=== PATIENT | male | born 1985 | race Caucasian/White ===

== ENCOUNTER → 2016-12-07 | Outpatient (CLI) | payer MEDICAID ==
[~2016-12-07] MED LIST: None per pt
== END | disposition home or self-care (01) ==
LOC: STAR 14:35
PROVIDERS: ATTEND Surgery
DX: Z02.9 Encounter for administrative examinations, unspecified (principal)

== ENCOUNTER 2016-12-15 09:24 | Day surgery (SDC) | payer MEDICAID ==
[~2016-12-15] VITALS: Ht 168.9 cm; Wt 91.0 kg
[2016-12-15 10:07] VITALS: BP 129/86
[2016-12-15] MEDS ORDERED: FENTANYL PF 100 MCG/2ML ONE ×2 (10:40→11:38)
[2016-12-15] MEDS ORDERED: BUPIVACAINE/PF-EPI 0.25% 1:200K ONE (10:41)
[2016-12-15] MEDS ORDERED: ONDANSETRON 2MG/ML, 2ML ONE (10:51)
[2016-12-15] MEDS ORDERED: KETOROLAC 30 MG/1 ML ONE (10:51)
[2016-12-15] MEDS ORDERED: CEFAZOLIN 1,000 MG ONE (10:51)
[2016-12-15] MEDS ORDERED: PROPOFOL 10 MG/ML, 20ML ONE (10:51)
[2016-12-15] MEDS ORDERED: MEPERIDINE/PF 25MG/0.5ML IVPush PRN (11:30)
[2016-12-15] MEDS ORDERED: hydrALAzine 20 MG/ML, 1ML IV PRN (11:30)
[2016-12-15] MEDS ORDERED: ONDANSETRON 2MG/ML, 2ML IVPush PRN ×2 (11:30→12:00)
[2016-12-15] MEDS ORDERED: ACETAMINOPHEN 325 MG TABLET PO PRN (11:30)
[2016-12-15] MEDS ORDERED: OXYcodone 5 MG/5 ML ORAL.SOL UDC PO PRN (11:30)
[2016-12-15] MEDS ORDERED: LABETALOL 5MG/ML, 20ML IV PRN (11:30)
[2016-12-15] MEDS ORDERED: OXYcodone 5 MG/5 ML ORAL.SOL UDC ONE (11:38)
[2016-12-15] MEDS: FENTANYL PF 100 MCG/2ML IV PRN ×2 (11:39→11:45)
[2016-12-15] MEDS ORDERED: HYDROmorphone 2 MG/ML, 1ML ONE ×2 (11:50→12:48)
[2016-12-15] MEDS: HYDROmorphone 1 MG/ML, 1ML IV PRN ×5 (11:52→12:50)
[2016-12-15] MEDS ORDERED: morphine SULFATE 10 MG/ML, 1ML IVPush PRN (12:00)
[2016-12-15] MEDS ORDERED: KETOROLAC 30 MG/1 ML IVPush PRN (12:00)
== END 2016-12-15 14:30 ==
LOC: OUT 09:24
PROVIDERS: ATTEND Surgery
DX: K42.9 Umbilical hernia without obstruction or gangrene (principal); F17.210 Nicotine dependence, cigarettes, uncomplicated
CPT/HCPCS: 49585; J0690; J1170; J1885; J2405; J2704; J3010

== ENCOUNTER 2017-07-24 07:55 | Emergency (ER) | payer MEDICAID ==
[~2017-07-24] VITALS: Ht 167.6 cm; Wt 90.3 kg
[2017-07-24] MEDS ORDERED: SODIUM CHLORIDE 0.9% 1,000ML IVBOLUS ONE (08:30)
[2017-07-24] MEDS ORDERED: MAALOX/HYOSCYAMINE/LIDOCAINE 45 ML BTL PO ONE (08:30)
[2017-07-24] MEDS ORDERED: ONDANSETRON 2MG/ML, 2ML IVPush ONE (08:30)
[2017-07-24] MEDS ORDERED: FAMOTIDINE 20 MG/2 ML IVP ONE (08:30)
[2017-07-24] MEDS ORDERED: ONDANSETRON 2MG/ML, 2ML ONE (08:36)
[2017-07-24] MEDS ORDERED: FAMOTIDINE 20 MG/2 ML ONE (08:36)
[2017-07-24] MEDS ORDERED: MAALOX/HYOSCYAMINE/LIDOCAINE 45 ML BTL ONE (08:36)
[2017-07-24 08:53] LABS: HEMATOCRIT 52.7 % (39.2-51.8); WHITE BLOOD COUNT 15.7 x10^3/uL (3.4-10)
[2017-07-24 09:01] LABS: BLOOD UREA NITROGEN 16 mg/dL (7-18)
[2017-07-24 09:37] VITALS: BP 142/96
== END 2017-07-24 10:04 | disposition home or self-care (01) ==
LOC: ED 09:30
DX: A08.11 Acute gastroenteropathy due to Norwalk agent (principal)
CPT/HCPCS: 36415; 80048; 82040; 85025; 96361; 96374; 96375; 99284; J2405; J7030; S0028

== ENCOUNTER 2019-01-08 11:09 | Inpatient (IN) | payer MEDICAID, OTHER ==
[~2019-01-08] VITALS: Ht 167.6 cm; Wt 95.2 kg
--- NOTE | 2019-01-08 11:49 | NUR ---
Pt to room from lobby.
[2019-01-08] MEDS ORDERED: SODIUM CHLORIDE 0.9% 1,000 ML IV ONE (11:52)
[2019-01-08] MEDS ORDERED: SODIUM CHLORIDE 0.9% 1,000ML IVBOLUS ONE (12:00)
[2019-01-08] MEDS ORDERED: ONDANSETRON 2MG/ML, 2ML IVPush ONE (12:00)
[2019-01-08] MEDS ORDERED: SODIUM CHLORIDE FLUSH 10ML SYR IVF ONE (12:00)
[2019-01-08] MEDS ORDERED: THIAMINE 100MG TABLET PO ONE (12:00)
[2019-01-08] MEDS ORDERED: THIAMINE 100MG TABLET ONE (12:09)
[2019-01-08] MEDS ORDERED: ONDANSETRON 2MG/ML, 2ML ONE (12:09)
[2019-01-08] MEDS ORDERED: LORazepam 2 MG/ML, 1ML ONE ×3 (12:10→14:19)
[2019-01-08] MEDS: LORazepam 2 MG/ML, 1ML IVPush PRN ×3 (12:14→14:23)
[2019-01-08 12:20] LABS: BASOPHILS # (AUTO) 0.04 x10^3/uL (0-0.1); BASOPHILS % (AUTO) 1 % (0-1); EOSINOPHILS # (AUTO) 0.03 x10^3/uL (0-0.4); EOSINOPHILS % (AUTO) 1 % (1-7); LYMPHOCYTES # (AUTO) 1.17 x10^3/uL (1-3.4); LYMPHOCYTES % (AUTO) 18 % (22-44); MD NO; MEAN CORPUSCULAR HEMOGLOBIN 29.3 pg (27.5-34.5); MEAN CORPUSCULAR HGB CONC 33.9 g/dL (33.2-36.2); MEAN CORPUSCULAR VOLUME 86.4 fL (81-97); MEAN PLATELET VOLUME 7.8 fL (7.4-10.4); MONOCYTES # (AUTO) 0.51 x10^3/uL (0.2-0.8); MONOCYTES % (AUTO) 8 % (2-9); NEUTROPHILS # (AUTO) 4.84 x10^3/uL (1.8-6.8); NEUTROPHILS % (AUTO) 74 % (42-75); PLATELET COUNT 244 x10^3/uL (130-400); RED BLOOD COUNT 5.38 x10^6/uL (4.38-5.82); RED CELL DISTRIBUTION WIDTH 14.4 % (9.4-14.8)
[2019-01-08 12:24] LABS: CHLORIDE 111 mmol/L (98-107)
[2019-01-08 12:31] LABS: ALANINE AMINOTRANSFERASE 58 U/L (12-78); ALBUMIN 4.5 g/dL (3.4-5.0); ALKALINE PHOSPHATASE 60 U/L (45-117); ANION GAP 9 mmol/L (5-15); BILIRUBIN,TOTAL 0.8 mg/dL (0.2-1.0); CALCIUM 8.3 mg/dL (8.5-10.1); CREATININE 0.94 mg/dL (0.7-1.3); TOTAL PROTEIN 7.5 g/dL (6.4-8.2)
--- NOTE | 2019-01-08 12:42 | NUR ---
JOHNNY RN NOTE: PATIEN REPORTS NAUSEA BETTER NOW. ADMINISTERED PO MEDS FOR PRIMARY RN.
--- NOTE | 2019-01-08 13:26 | NUR ---
client appears in no acute distress. 1st liter IVF still infusing. clonidine given earlier, BP remains elevated. does not appear anxious.
[2019-01-08] MEDS ORDERED: LABETALOL 5MG/ML, 20ML IVPush ONE (13:30)
--- NOTE | 2019-01-08 13:38 | NUR ---
ordered labetalol. remains tremulous, remedicated with ativan 1mg SIV. second liter NS hung at 250mL/hr
--- NOTE | 2019-01-08 13:50 | NUR ---
admitting provider in room. bp remains elevated, labetalol administered.
[2019-01-08] MEDS ORDERED: LORazepam 1MG TABLET PO PRN ×2 (14:00)
[2019-01-08] MEDS ORDERED: POTASSIUM CHLORIDE 20 MEQ, MAGNESIUM SULFATE 2 GM, THIAMINE 200 MG, MVI ADULT 10 ML, FO... IV SCH (14:00)
[2019-01-08] MEDS ORDERED: ONDANSETRON 2MG/ML, 2ML IVPush PRN (14:00)
[2019-01-08] MEDS ORDERED: LORazepam 0.5MG TABLET PO PRN (14:00)
[2019-01-08] MEDS ORDERED: ACETAMINOPHEN 325 MG TABLET PO PRN (14:00)
[2019-01-08] MEDS ORDERED: LORazepam 2 MG/ML, 1ML IV PRN ×2 (14:00)
[2019-01-08] MEDS ORDERED: LABETALOL 5MG/ML, 20ML IVPush PRN (14:00)
--- NOTE | 2019-01-08 14:15 | NUR ---
Pt continues with tremors, reports sharpness to lights and sounds.
--- NOTE | 2019-01-08 14:23 | NUR ---
Pt medicated per MAR, denies other needs.
[2019-01-08] MEDS ORDERED: SODIUM CHLORIDE 0.9% 1,000 ML IV SCH (14:30)
--- NOTE | 2019-01-08 14:40 | NUR ---
Report called to Emeka CODY on [employer] tele. Floor ready for pt transport.
[2019-01-08 14:45] LABS: TROPONIN I < 0.015 ng/mL (0.000-0.045)
[2019-01-08 15:12] VITALS: BP 156/94
[2019-01-08] MEDS ORDERED: ASPIRIN 81 MG TABLET EC PO ONE (16:00)
[2019-01-08] MEDS ORDERED: ASPIRIN 325 MG TABLET ONE (16:01)
[2019-01-08] MEDS: ENOXAPARIN 40 MG/0.4 ML SQ SCH (16:11)
[2019-01-08] MEDS: LORazepam 2 MG/ML, 1ML IV PRN ×3 (16:44→20:13)
[2019-01-08 20:00] VITALS: BP 163/99
[2019-01-08 20:33] LABS: TROPONIN I < 0.015 ng/mL (0.000-0.045)
[2019-01-08] MEDS ORDERED: CALCIUM CARBONATE 500 MG TABLET PO SCH (21:00)
[2019-01-09 02:31] LABS: BASOPHILS # (AUTO) 0.03 x10^3/uL (0-0.1); BASOPHILS % (AUTO) 0 % (0-1); EOSINOPHILS # (AUTO) 0.07 x10^3/uL (0-0.4); EOSINOPHILS % (AUTO) 1 % (1-7); LYMPHOCYTES # (AUTO) 1.39 x10^3/uL (1-3.4); LYMPHOCYTES % (AUTO) 16 % (22-44); MD NO; MEAN CORPUSCULAR HEMOGLOBIN 29.7 pg (27.5-34.5); MEAN CORPUSCULAR HGB CONC 34.1 g/dL (33.2-36.2); MEAN CORPUSCULAR VOLUME 86.9 fL (81-97); MEAN PLATELET VOLUME 7.6 fL (7.4-10.4); MONOCYTES # (AUTO) 0.76 x10^3/uL (0.2-0.8); MONOCYTES % (AUTO) 9 % (2-9); NEUTROPHILS # (AUTO) 6.36 x10^3/uL (1.8-6.8); NEUTROPHILS % (AUTO) 74 % (42-75); PLATELET COUNT 221 x10^3/uL (130-400); RED BLOOD COUNT 5.08 x10^6/uL (4.38-5.82); RED CELL DISTRIBUTION WIDTH 14.4 % (9.4-14.8)
[2019-01-09 02:44] LABS: ALBUMIN 3.7 g/dL (3.4-5.0); ANION GAP 8 mmol/L (5-15); CALCIUM 7.9 mg/dL (8.5-10.1); CHLORIDE 111 mmol/L (98-107)
[2019-01-09 02:47] LABS: ALANINE AMINOTRANSFERASE 44 U/L (12-78); ALKALINE PHOSPHATASE 51 U/L (45-117); BILIRUBIN,TOTAL 0.8 mg/dL (0.2-1.0); TOTAL PROTEIN 6.6 g/dL (6.4-8.2)
[2019-01-09 02:49] LABS: TROPONIN I < 0.015 ng/mL (0.000-0.045)
[2019-01-09 03:56] VITALS: BP 163/107
[2019-01-09] MEDS: hydrALAzine 20 MG/ML, 1ML IVPush PRN ×2 (04:01→15:56)
[2019-01-09 04:21] VITALS: BP 148/99
[2019-01-09] MEDS: CHLORDIAZEPOXIDE 10 MG CAPSULE PO PRN ×2 (05:51→21:44)
[2019-01-09 07:45] VITALS: BP 145/94
[2019-01-09] MEDS ORDERED: CALCIUM CHLORIDE 13.6 MEQ in SODIUM CHLORIDE 0.9% 100 ML IV ONE (09:00)
[2019-01-09] MEDS ORDERED: THIAMINE 100MG TABLET PO SCH (09:00)
[2019-01-09] MEDS: LORazepam 2 MG/ML, 1ML IV PRN ×4 (10:28→18:40)
[2019-01-09] MEDS: MULTIVITAMINS/MINERALS TABLET PO SCH (10:28)
[2019-01-09] MEDS: NEUTRA PHOS K 250 MG TABLET PO SCH ×2 (10:28→21:43)
[2019-01-09] MEDS: AMLODIPINE 5 MG TABLET PO SCH (10:28)
[2019-01-09] MEDS: FOLIC ACID 1 MG TABLET PO SCH (10:28)
[2019-01-09] MEDS: CALCIUM CARBONATE 500 MG TABLET PO SCH ×3 (10:28→21:44)
[2019-01-09] MEDS: THIAMINE 100 MG in SODIUM CHLORIDE 0.9% 50 ML IV SCH (11:52)
[2019-01-09 13:09] LABS: MICROSCOPIC NOT IND
[2019-01-09 13:12] LABS: CULTURE INDICATED? NO
[2019-01-09] MEDS ORDERED: POTASSIUM CHLORIDE 20 MEQ, MAGNESIUM SULFATE 2 GM, THIAMINE 200 MG, MVI ADULT 10 ML, FO... IV SCH (14:00)
[2019-01-09] MEDS: ENOXAPARIN 40 MG/0.4 ML SQ SCH (15:37)
[2019-01-09 15:39] VITALS: BP 170/106
[2019-01-09 16:25] VITALS: BP 129/84
[2019-01-09 20:12] VITALS: BP 144/88
[2019-01-10 01:32] VITALS: BP 144/88
[2019-01-10 06:15] LABS: ALBUMIN 4.1 g/dL (3.4-5.0); ANION GAP 7 mmol/L (5-15); CALCIUM 9.3 mg/dL (8.5-10.1); CHLORIDE 110 mmol/L (98-107)
[2019-01-10 06:19] LABS: ALANINE AMINOTRANSFERASE 57 U/L (12-78); ALKALINE PHOSPHATASE 68 U/L (45-117); BILIRUBIN,TOTAL 1.2 mg/dL (0.2-1.0); CREATININE 0.94 mg/dL (0.7-1.3); TOTAL PROTEIN 7.8 g/dL (6.4-8.2)
[2019-01-10 07:04] VITALS: BP 139/85
[2019-01-10] MEDS: FOLIC ACID 1 MG TABLET PO SCH (08:03)
[2019-01-10] MEDS: AMLODIPINE 5 MG TABLET PO SCH (08:03)
[2019-01-10] MEDS: CALCIUM CARBONATE 500 MG TABLET PO SCH ×3 (08:03→20:31)
[2019-01-10] MEDS: MULTIVITAMINS/MINERALS TABLET PO SCH (08:03)
[2019-01-10] MEDS: NEUTRA PHOS K 250 MG TABLET PO SCH ×2 (08:03→20:31)
[2019-01-10] MEDS ORDERED: LORazepam 0.5MG TABLET PO PRN (10:00)
[2019-01-10] MEDS ORDERED: LORazepam 1MG TABLET PO PRN ×4 (10:00)
[2019-01-10] MEDS: THIAMINE 100 MG in SODIUM CHLORIDE 0.9% 50 ML IV SCH (10:00)
[2019-01-10] MEDS: LORazepam 1MG TABLET PO PRN ×2 (10:04→16:49)
[2019-01-10] MEDS: SODIUM CHLORIDE 0.9% 1,000 ML IV SCH ×2 (13:01→20:31)
[2019-01-10 13:50] VITALS: BP 142/82
[2019-01-10] MEDS: ENOXAPARIN 40 MG/0.4 ML SQ SCH (16:50)
[2019-01-10 19:00] VITALS: BP 155/98
[2019-01-10] MEDS ORDERED: CHLORDIAZEPOXIDE 10 MG CAPSULE PO SCH (21:00)
[2019-01-11 02:00] VITALS: BP 145/88
[2019-01-11] MEDS: SODIUM CHLORIDE 0.9% 1,000 ML IV SCH ×2 (03:37→11:30)
[2019-01-11 05:22] LABS: CHLORIDE 110 mmol/L (98-107)
[2019-01-11 05:29] LABS: ALANINE AMINOTRANSFERASE 87 U/L (12-78); ALBUMIN 3.8 g/dL (3.4-5.0); ALKALINE PHOSPHATASE 59 U/L (45-117); ANION GAP 7 mmol/L (5-15); BILIRUBIN,TOTAL 0.9 mg/dL (0.2-1.0); CALCIUM 8.9 mg/dL (8.5-10.1); CREATININE 1.04 mg/dL (0.7-1.3); TOTAL PROTEIN 7.3 g/dL (6.4-8.2)
[2019-01-11] MEDS: FOLIC ACID 1 MG TABLET PO SCH (08:50)
[2019-01-11] MEDS: MULTIVITAMINS/MINERALS TABLET PO SCH (08:50)
[2019-01-11] MEDS: CALCIUM CARBONATE 500 MG TABLET PO SCH (08:50)
[2019-01-11] MEDS: NEUTRA PHOS K 250 MG TABLET PO SCH (08:51)
[2019-01-11] MEDS: AMLODIPINE 5 MG TABLET PO SCH (08:51)
[2019-01-11 09:37] VITALS: BP 147/93
[2019-01-11] MEDS: THIAMINE 100 MG in SODIUM CHLORIDE 0.9% 50 ML IV SCH (09:41)
== END 2019-01-11 14:29 | disposition left against medical advice (07) | DRG 305 ==
LOC: ED 13:01 → EDIP 13:35 → 4EST 14:52
PROVIDERS: ADMIT Internal Medicine; ATTEND Internal Medicine
DX: I16.0 Hypertensive urgency (principal); F10.10 Alcohol abuse, uncomplicated; E83.39 Other disorders of phosphorus metabolism; E83.51 Hypocalcemia; E86.0 Dehydration; R00.0 Tachycardia, unspecified; G89.29 Other chronic pain; R11.2 Nausea with vomiting, unspecified; I10 Essential (primary) hypertension; H53.8 Other visual disturbances; R94.5 Abnormal results of liver function studies; R10.9 Unspecified abdominal pain; Z53.21 Procedure and treatment not carried out due to patient leaving prior to being seen by health care provider; Z79.899 Other long term (current) drug therapy; Z83.3 Family history of diabetes mellitus
CPT/HCPCS: 36415; 96361; 99291; J7042; 71045; 80053; 80307; 81003; 82330; 83735; 84100; 84443; 84484; 85025; 93005; 93306; 96374; 96375; G0378; J1650; J2405; J3411; J3475; J3480; J0360; J2060; J7030

== ENCOUNTER 2019-05-02 07:56 | Emergency (ER) | payer SELFPAY ==
[~2019-05-02] VITALS: Ht 167.6 cm; Wt 93.8 kg
[2019-05-02 10:49] VITALS: BP 161/96
== END 2019-05-02 11:43 | disposition home or self-care (01) ==
LOC: ED 11:25
DX: S39.012A Strain of muscle, fascia and tendon of lower back, initial encounter (principal); I10 Essential (primary) hypertension; X58.XXXA Exposure to other specified factors, initial encounter; Y93.89 Activity, other specified; Y92.89 Other specified places as the place of occurrence of the external cause; Y99.8 Other external cause status
CPT/HCPCS: 72110; 96372; 99284; J1885

== ENCOUNTER 2019-10-15 09:46 | Inpatient (IN) | payer OTHER ==
[~2019-10-15] VITALS: Ht 167.6 cm; Wt 97.8 kg
--- NOTE | 2019-10-15 10:41 | NUR ---
SUPERVISOR DRYING: PT TO ROOM FROM CECELAI PEREZ
[2019-10-15] MEDS ORDERED: LORazepam 2 MG/ML, 1ML IVPush PRN (11:00)
[2019-10-15] MEDS ORDERED: PANTOPRAZOLE 80 MG in SODIUM CHLORIDE 0.9% 50 ML IVPB ONE (11:00)
[2019-10-15] MEDS ORDERED: SODIUM CHLORIDE 0.9% 1,000ML IVBOLUS ONE (11:00)
[2019-10-15] MEDS ORDERED: FAMOTIDINE 20 MG/2 ML IVPush ONE (11:00)
[2019-10-15] MEDS ORDERED: PANTOPRAZOLE 40 MG IV IVPush ONE (11:00)
[2019-10-15] MEDS ORDERED: SODIUM CHLORIDE FLUSH 10ML SYR IVF ONE (11:00)
[2019-10-15] MEDS ORDERED: FAMOTIDINE 20 MG/2 ML ONE (11:05)
[2019-10-15] MEDS ORDERED: THIAMINE 100 MG/ML, 2ML ONE (11:05)
[2019-10-15] MEDS ORDERED: PANTOPRAZOLE 40 MG IV ONE (11:05)
[2019-10-15 11:06] LABS: BASOPHILS # (AUTO) 0.04 x10^3/uL (0-0.1); BASOPHILS % (AUTO) 1 % (0-1); EOSINOPHILS # (AUTO) 0.07 x10^3/uL (0-0.4); EOSINOPHILS % (AUTO) 1 % (1-7); LYMPHOCYTES # (AUTO) 2.04 x10^3/uL (1-3.4); LYMPHOCYTES % (AUTO) 26 % (22-44); MD NO; MEAN CORPUSCULAR HEMOGLOBIN 29.1 pg (27.5-34.5); MEAN CORPUSCULAR HGB CONC 33.4 g/dL (33.2-36.2); MEAN CORPUSCULAR VOLUME 87.3 fL (81-97); MEAN PLATELET VOLUME 7.7 fL (7.4-10.4); MONOCYTES # (AUTO) 0.46 x10^3/uL (0.2-0.8); MONOCYTES % (AUTO) 6 % (2-9); NEUTROPHILS # (AUTO) 5.37 x10^3/uL (1.8-6.8); NEUTROPHILS % (AUTO) 67 % (42-75); PLATELET COUNT 306 x10^3/uL (130-400); RED BLOOD COUNT 6.62 x10^6/uL (4.38-5.82); RED CELL DISTRIBUTION WIDTH 13.8 % (9.4-14.8)
[2019-10-15 11:11] LABS: INTERNATIONAL NORMALIZED RATIO 0.92 (0.93-1.1); PROTHROMBIN TIME 9.7 Seconds (9.6-11.5)
[2019-10-15 11:13] LABS: ALANINE AMINOTRANSFERASE 139 U/L (12-78); ALBUMIN 4.8 g/dL (3.4-5.0); ANION GAP 14 mmol/L (5-15); CALCIUM 10.3 mg/dL (8.5-10.1); CHLORIDE 107 mmol/L (98-107)
[2019-10-15 11:16] LABS: ALKALINE PHOSPHATASE 64 U/L (45-117); BILIRUBIN,TOTAL 1.3 mg/dL (0.2-1.0); CREATININE 1.07 mg/dL (0.7-1.3); TOTAL PROTEIN 9.1 g/dL (6.4-8.2)
--- NOTE | 2019-10-15 11:48 | NUR ---
REPORT RECEIVED FROM GLO GODINEZ, THIS RN ASSUMING CARE AT THIS TIME. PT A&O, RESPS EVEN AND UNLABORED, NADN. PER MD REGALADO, PT TO RECEIVE TOTAL 40MG PROTONIX IV PUSH, RN INSTRUCTED TO HOLD 80MG PROTONIX IV INFUSION.
[2019-10-15] MEDS ORDERED: THIAMINE 100 MG in SODIUM CHLORIDE 0.9% 50 ML IVPB ONE (12:00)
--- NOTE | 2019-10-15 13:10 | NUR ---
TRESSA Woodard at bedside for reassessment. pt a&o, repss even and unlabored, noted pt is tachycardic at rate 100's. MD discussed results and POC with pt. ordered RN to admin additional liter NS bolus. Plan to admit pt.
[2019-10-15] MEDS ORDERED: SODIUM CHLORIDE 0.9%, 500ML IVBOLUS ONE (13:30)
--- NOTE | 2019-10-15 14:00 | NUR ---
REPORT GIVEN TO GLO DAVIS, PT [facility]SPORT TO [email or web address].
--- NOTE | 2019-10-15 14:05 | NUR ---
PT A&OX4, RESPS EVEN AND UNLABORED, SINUS TACH RATE 100'S ON STRATIGRAPHY TEACHER WITH NO ECTOPY. OK'D RN TO GIVE PT WATER, PT TOLERATING PO FLUIDS WITH NO N/V. PT AWAITING TRANSPORT AT THIS TIME.
[2019-10-15 14:40] VITALS: BP 158/66
[2019-10-15 14:49] VITALS: BP 158/66
[2019-10-15] MEDS ORDERED: LORazepam 2 MG/ML, 1ML IV PRN ×5 (16:00)
[2019-10-15] MEDS ORDERED: ONDANSETRON 2MG/ML, 2ML IVPush PRN (16:00)
[2019-10-15] MEDS ORDERED: PROMETHAZINE 25 MG/ML, 1ML IM PRN (16:00)
[2019-10-15] MEDS ORDERED: ONDANSETRON ODT 4 MG PO PRN (16:00)
[2019-10-15] MEDS ORDERED: LORazepam 1MG TABLET PO PRN ×2 (16:00)
[2019-10-15] MEDS ORDERED: DOCUSATE 100 MG CAPSULE PO PRN (16:00)
[2019-10-15] MEDS: PANTOPRAZOLE 40 MG IV IVPush SCH (16:00)
[2019-10-15] MEDS ORDERED: LORazepam 0.5MG TABLET PO PRN (16:00)
[2019-10-15] MEDS ORDERED: morphine SULFATE 10 MG/ML, 1ML IVPush PRN (16:00)
[2019-10-15] MEDS ORDERED: hydrALAzine 20 MG/ML, 1ML IVPush PRN (16:00)
[2019-10-15] MEDS ORDERED: FOLIC ACID 1 MG in DEXTROSE 5% 50 ML IV SCH (16:00)
[2019-10-15 16:32] LABS: FREE T4 (FREE THYROXINE) 0.93 ng/dL (0.76-1.46)
[2019-10-15] MEDS: SODIUM CHLORIDE 0.9% IV SCH (17:01)
[2019-10-15] MEDS: D5%-0.9% NACL 1,000 ML IV SCH (17:01)
[2019-10-15] MEDS: THIAMINE IV SCH (17:01)
[2019-10-15] MEDS: FOLIC ACID IV SCH (17:01)
[2019-10-15] MEDS: NICOTINE 14MG/24 HR PATCH.TD24 TD SCH (17:02)
[2019-10-15 18:53] VITALS: BP 182/108
[2019-10-15 19:08] VITALS: BP 152/86
[2019-10-15] MEDS: LORazepam 1MG TABLET PO PRN (21:06)
[2019-10-15 23:22] LABS: BASOPHILS # (AUTO) 0.02 x10^3/uL (0-0.1); BASOPHILS % (AUTO) 0 % (0-1); EOSINOPHILS # (AUTO) 0.05 x10^3/uL (0-0.4); EOSINOPHILS % (AUTO) 1 % (1-7); LYMPHOCYTES # (AUTO) 1.28 x10^3/uL (1-3.4); LYMPHOCYTES % (AUTO) 16 % (22-44); MD NO; MEAN CORPUSCULAR HEMOGLOBIN 29.6 pg (27.5-34.5); MEAN CORPUSCULAR HGB CONC 33.8 g/dL (33.2-36.2); MEAN CORPUSCULAR VOLUME 87.4 fL (81-97); MEAN PLATELET VOLUME 7.5 fL (7.4-10.4); MONOCYTES # (AUTO) 0.67 x10^3/uL (0.2-0.8); MONOCYTES % (AUTO) 8 % (2-9); NEUTROPHILS # (AUTO) 5.89 x10^3/uL (1.8-6.8); NEUTROPHILS % (AUTO) 74 % (42-75); PLATELET COUNT 232 x10^3/uL (130-400); RED BLOOD COUNT 5.43 x10^6/uL (4.38-5.82); RED CELL DISTRIBUTION WIDTH 13.9 % (9.4-14.8)
[2019-10-16 00:38] VITALS: BP_SYST 148; BP_SYST 149; BP_DIAS 76; BP_DIAS 82
[2019-10-16] MEDS: D5%-0.9% NACL 1,000 ML IV SCH ×2 (01:55→09:42)
[2019-10-16] MEDS: LORazepam 1MG TABLET PO PRN ×6 (04:39→20:29)
[2019-10-16 05:53] LABS: BASOPHILS # (AUTO) 0.02 x10^3/uL (0-0.1); BASOPHILS % (AUTO) 0 % (0-1); EOSINOPHILS # (AUTO) 0.05 x10^3/uL (0-0.4); EOSINOPHILS % (AUTO) 1 % (1-7); LYMPHOCYTES # (AUTO) 1.46 x10^3/uL (1-3.4); LYMPHOCYTES % (AUTO) 19 % (22-44); MD NO; MEAN CORPUSCULAR HEMOGLOBIN 29.9 pg (27.5-34.5); MEAN CORPUSCULAR HGB CONC 33.6 g/dL (33.2-36.2); MEAN CORPUSCULAR VOLUME 88.9 fL (81-97); MONOCYTES % (AUTO) 11 % (2-9); NEUTROPHILS # (AUTO) 5.25 x10^3/uL (1.8-6.8); NEUTROPHILS % (AUTO) 69 % (42-75); PLATELET COUNT 218 x10^3/uL (130-400); RED BLOOD COUNT 5.57 x10^6/uL (4.38-5.82)
[2019-10-16 06:05] LABS: CHLORIDE 106 mmol/L (98-107)
[2019-10-16 06:06] LABS: CALCIUM 8.3 mg/dL (8.5-10.1)
[2019-10-16 06:11] LABS: ALANINE AMINOTRANSFERASE 85 U/L (12-78); ALBUMIN 3.8 g/dL (3.4-5.0); ALKALINE PHOSPHATASE 47 U/L (45-117); ANION GAP 11 mmol/L (5-15); BILIRUBIN,TOTAL 2.3 mg/dL (0.2-1.0); CHOL/HDL RATIO 2.3; CHOLESTEROL, TOTAL 268 mg/dL (140-239); CREATININE 1.02 mg/dL (0.7-1.3); HDL CHOL % 44 % (26-37); HDL CHOLESTEROL (DIRECT) 119 mg/dL (40-60); LDL CHOLESTEROL,CALCULATED 132 mg/dL (54-169); LDL/HDL RATIO 1.1 (0.5-3.0); TRIGLYCERIDES 85 mg/dL (50-200); VLDL CHOLESTEROL 17 mg/dL (0-25)
[2019-10-16] MEDS: PANTOPRAZOLE 40 MG IV IVPush SCH (06:13)
[2019-10-16 06:35] VITALS: BP 147/79
[2019-10-16] MEDS: OXYcodone IR 5MG TABLET PO PRN ×2 (09:43→17:45)
[2019-10-16 14:09] VITALS: BP 174/97
[2019-10-16] MEDS: PANTOPROZOLE 40MG TABLET PO SCH (17:19)
[2019-10-16] MEDS: NICOTINE 14MG/24 HR PATCH.TD24 TD SCH (17:20)
[2019-10-16] MEDS: SODIUM CHLORIDE 0.9% IV SCH (17:45)
[2019-10-16] MEDS: THIAMINE IV SCH (17:45)
[2019-10-16] MEDS: FOLIC ACID IV SCH (17:45)
[2019-10-16 18:47] VITALS: BP 153/84
[2019-10-17 00:19] VITALS: BP 150/88
[2019-10-17] MEDS ORDERED: FLU VACC QS2019-20 36MOS UP/PF 0.5 ML IM-VACC ONE (00:30)
[2019-10-17] MEDS: LORazepam 1MG TABLET PO PRN ×5 (00:59→20:57)
[2019-10-17] MEDS: PANTOPROZOLE 40MG TABLET PO SCH ×2 (05:36→15:26)
[2019-10-17] MEDS ORDERED: MAGNESIUM SULFATE PMX 2GM/50ML 50 ML IV ONE (07:30)
[2019-10-17] MEDS: FOLIC ACID 1 MG TABLET PO SCH (07:53)
[2019-10-17] MEDS: MULTIVITAMIN 1 TABLET PO SCH (07:53)
[2019-10-17] MEDS: MAGNESIUM OXIDE 400 MG TABLET PO SCH ×2 (07:54→20:58)
[2019-10-17] MEDS: THIAMINE 100MG TABLET PO SCH (07:54)
[2019-10-17] MEDS: PROPRANOLOL 20 MG TABLET PO SCH ×3 (08:00→20:57)
[2019-10-17 08:40] LABS: ALANINE AMINOTRANSFERASE 85 U/L (12-78); ALBUMIN 4.1 g/dL (3.4-5.0); ANION GAP 11 mmol/L (5-15); CALCIUM 8.7 mg/dL (8.5-10.1); CHLORIDE 105 mmol/L (98-107); CREATININE 0.92 mg/dL (0.7-1.3)
[2019-10-17 08:43] LABS: ALKALINE PHOSPHATASE 58 U/L (45-117); BILIRUBIN,TOTAL 3.2 mg/dL (0.2-1.0); TOTAL PROTEIN 7.6 g/dL (6.4-8.2)
[2019-10-17 09:00] VITALS: BP 135/86
[2019-10-17] MEDS: OXYcodone IR 5MG TABLET PO PRN ×2 (11:31→20:59)
[2019-10-17 13:12] VITALS: BP 149/102
[2019-10-17] MEDS: NICOTINE 14MG/24 HR PATCH.TD24 TD SCH (15:26)
[2019-10-17 18:39] VITALS: BP 141/96
[2019-10-18 01:21] VITALS: BP 144/85
[2019-10-18] MEDS: PROPRANOLOL 20 MG TABLET PO SCH ×2 (05:31→15:25)
[2019-10-18] MEDS: PANTOPROZOLE 40MG TABLET PO SCH (05:31)
[2019-10-18 06:02] LABS: ALANINE AMINOTRANSFERASE 77 U/L (12-78); ANION GAP 9 mmol/L (5-15); CALCIUM 9.1 mg/dL (8.5-10.1); CHLORIDE 106 mmol/L (98-107); CREATININE 1.11 mg/dL (0.7-1.3)
[2019-10-18 06:04] LABS: ALKALINE PHOSPHATASE 63 U/L (45-117); BILIRUBIN,TOTAL 2.6 mg/dL (0.2-1.0); TOTAL PROTEIN 7.9 g/dL (6.4-8.2)
[2019-10-18] MEDS ORDERED: CHLORDIAZEPOXIDE 25 MG CAPSULE PO PRN (08:00)
[2019-10-18] MEDS: MAGNESIUM OXIDE 400 MG TABLET PO SCH (08:28)
[2019-10-18] MEDS: FOLIC ACID 1 MG TABLET PO SCH (08:28)
[2019-10-18] MEDS: THIAMINE 100MG TABLET PO SCH (08:29)
[2019-10-18] MEDS: NICOTINE 14MG/24 HR PATCH.TD24 TD SCH (08:29)
[2019-10-18] MEDS: MULTIVITAMIN 1 TABLET PO SCH (08:29)
[2019-10-18 09:50] VITALS: BP 128/82
[2019-10-18] MEDS: OXYcodone IR 5MG TABLET PO PRN (10:09)
[2019-10-18] MEDS ORDERED: CHLO25CA9 PO ×2 (11:23→11:33)
[2019-10-18] MEDS ORDERED: PANT40TA5 PO (11:23)
[2019-10-18] MEDS ORDERED: PROP20TA PO ×3 (11:32→12:08)
[2019-10-18] MEDS ORDERED: THIA100T67 PO (11:32)
[2019-10-18] MEDS ORDERED: FOLI-17 PO (11:32)
[2019-10-18] MEDS ORDERED: TRAM50TA2 PO (11:32)
[2019-10-18] MEDS ORDERED: NICO-486 TD (11:32)
[2019-10-18] MEDS ORDERED: MULT1TAB60 PO (11:32)
[2019-10-18] MEDS ORDERED: MAGN400T50 PO (11:32)
[2019-10-18] MEDS ORDERED: ONDA4TAB13 PO (11:32)
[2019-10-18] MEDS ORDERED: BACL-19 PO (11:33)
== END 2019-10-18 17:04 | disposition home or self-care (01) | DRG 433 ==
LOC: ED 13:54 → 4WST 14:00 → DCLOUNGE 10-18 16:46
PROVIDERS: ADMIT Internal Medicine; ATTEND Internal Medicine
DX: K70.10 Alcoholic hepatitis without ascites (principal); F10.239 Alcohol dependence with withdrawal, unspecified; K92.0 Hematemesis; E83.42 Hypomagnesemia; E86.0 Dehydration; F10.229 Alcohol dependence with intoxication, unspecified; F17.210 Nicotine dependence, cigarettes, uncomplicated; I10 Essential (primary) hypertension; K29.20 Alcoholic gastritis without bleeding; Z91.19 Patient's noncompliance with other medical treatment and regimen; Z81.1 Family history of alcohol abuse and dependence
CPT/HCPCS: 36415; 96374; 96375; 99285; J3490; J7042; 80053; 80061; 82977; 83036; 83690; 83735; 84100; 84439; 84443; 85025; 85610; 85730; 90686; 93005; G0378; J2405; J3411; C9113; J2060; J3475; J7030; J7040

== ENCOUNTER 2020-02-10 20:19 | Inpatient (IN) | payer OTHER ==
[~2020-02-10] VITALS: Ht 167.6 cm; Wt 89.7 kg
[~2020-02-10 20:19] MED LIST changes: +BACL-19 PO; +CHLO25CA9 PO; +FOLI-17 PO; +MAGN400T50 PO; +MULT1TAB60 PO; +NICO-486 TD; +ONDA4TAB13 PO; +PANT40TA5 PO; +PROP20TA PO; +THIA100T67 PO; +TRAM50TA2 PO
[2020-02-10] MEDS ORDERED: ONDANSETRON 2MG/ML, 2ML ONE ×2 (20:46→22:17)
[2020-02-10] MEDS ORDERED: LORazepam 2 MG/ML, 1ML ONE ×3 (20:47→22:17)
--- NOTE | 2020-02-10 20:50 | NUR ---
PT VOMITING, C/O CHEST PALP, HR 140S, C/O AH/VH, SHAKY. DENIES SEIZURE HX. PIV EST IVF MEDS PER VERBAL ORDER-ZOFRAN AND 2 MG ATIVAN PER JOSE A SALGU[facility] PRECS.
[2020-02-10] MEDS ORDERED: ONDANSETRON 2MG/ML, 2ML IVPush ONE ×2 (21:00→22:30)
[2020-02-10] MEDS ORDERED: SODIUM CHLORIDE 0.9% 1,000ML IVBOLUS ONE (21:00)
[2020-02-10] MEDS ORDERED: SODIUM CHLORIDE FLUSH 10ML SYR IVF ONE (21:00)
[2020-02-10] MEDS ORDERED: MAGNESIUM SULFATE 1 GM, THIAMINE 100 MG, FOLIC ACID 1 MG, MVI ADULT 10 ML in SODIUM CHL... IV ONE (21:00)
[2020-02-10] MEDS ORDERED: LORazepam 2 MG/ML, 1ML IVPush ONE ×3 (21:00→22:30)
--- NOTE | 2020-02-10 21:07 | NUR ---
RECEIVED REPORT FROM GLO ORDONEZ. TREMORS NOTED.
--- NOTE | 2020-02-10 21:07 | NUR ---
report to lino pascal. as
[2020-02-10 21:23] LABS: ALANINE AMINOTRANSFERASE 231 U/L (12-78); ALBUMIN 5.1 g/dL (3.4-5.0); ANION GAP 24 mmol/L (5-15); BASOPHILS % (AUTO) 0 % (0-1); CALCIUM 9.8 mg/dL (8.5-10.1); CHLORIDE 100 mmol/L (98-107); CREATININE 1.27 mg/dL (0.7-1.3); EOSINOPHILS % (AUTO) 0 % (1-7); LYMPHOCYTES # (AUTO) 0.52 x10^3/uL (1-3.4); LYMPHOCYTES % (AUTO) 4 % (22-44); MD NO; MEAN CORPUSCULAR HEMOGLOBIN 28.1 pg (27.5-34.5); MEAN CORPUSCULAR VOLUME 85.3 fL (81-97); MEAN PLATELET VOLUME 8.6 fL (7.4-10.4); MONOCYTES # (AUTO) 0.53 x10^3/uL (0.2-0.8); MONOCYTES % (AUTO) 5 % (2-9); NEUTROPHILS # (AUTO) 10.71 x10^3/uL (1.8-6.8); NEUTROPHILS % (AUTO) 91 % (42-75); PLATELET COUNT 244 x10^3/uL (130-400); RED BLOOD COUNT 6.19 x10^6/uL (4.38-5.82); RED CELL DISTRIBUTION WIDTH 14.6 % (9.4-14.8)
[2020-02-10 21:25] LABS: ALKALINE PHOSPHATASE 72 U/L (45-117); BILIRUBIN,TOTAL 2.1 mg/dL (0.2-1.0); TOTAL PROTEIN 9.1 g/dL (6.4-8.2)
--- NOTE | 2020-02-10 21:58 | NUR ---
patient re-medicated for tremors. rally bag hung. patient still vomiting. ~ 500 ml of vomit noted.
[2020-02-10] MEDS ORDERED: LORazepam 0.5MG TABLET PO PRN (23:00)
[2020-02-10] MEDS ORDERED: LORazepam 2 MG/ML, 1ML IV PRN ×4 (23:00)
[2020-02-10] MEDS ORDERED: LORazepam 1MG TABLET PO PRN ×3 (23:00)
[2020-02-10 23:16] VITALS: BP 154/111
[2020-02-10] MEDS ORDERED: DOCUSATE 100 MG CAPSULE PO PRN (23:30)
[2020-02-10] MEDS ORDERED: morphine SULFATE 10 MG/ML, 1ML IVPush PRN (23:30)
[2020-02-10] MEDS ORDERED: BISACODYL 10 MG SUPP PR PRN (23:30)
[2020-02-10] MEDS ORDERED: LABETALOL 5MG/ML, 20ML IVPush PRN (23:30)
[2020-02-10] MEDS ORDERED: POLYETHYLENE GLYCOL 17 GM PACKET PO PRN (23:30)
[2020-02-10] MEDS ORDERED: ONDANSETRON ODT 4 MG PO PRN (23:30)
[2020-02-10] MEDS ORDERED: hydrALAzine 20 MG/ML, 1ML IVPush PRN (23:30)
[2020-02-10] MEDS ORDERED: PROMETHAZINE 25 MG/ML, 1ML IM PRN (23:30)
[2020-02-10] MEDS: NICOTINE 7 MG/24 HR PATCH.TD24 TD SCH (23:36)
[2020-02-10] MEDS: PANTOPRAZOLE 40 MG IV IVPush SCH (23:36)
[2020-02-10 23:41] VITALS: BP 159/95
[2020-02-11 01:10] VITALS: BP 144/87
[2020-02-11 03:14] LABS: INTERNATIONAL NORMALIZED RATIO 0.93 (0.93-1.1); PROTHROMBIN TIME 9.9 Seconds (9.6-11.5)
[2020-02-11 03:18] LABS: ALBUMIN 4.1 g/dL (3.4-5.0); ANION GAP 14 mmol/L (5-15); CALCIUM 8.8 mg/dL (8.5-10.1); CHLORIDE 106 mmol/L (98-107)
[2020-02-11 03:21] LABS: BASOPHILS # (AUTO) 0.02 x10^3/uL (0-0.1); BASOPHILS % (AUTO) 0 % (0-1); EOSINOPHILS # (AUTO) 0.05 x10^3/uL (0-0.4); EOSINOPHILS % (AUTO) 1 % (1-7); LYMPHOCYTES # (AUTO) 0.92 x10^3/uL (1-3.4); LYMPHOCYTES % (AUTO) 8 % (22-44); MD NO; MEAN CORPUSCULAR HEMOGLOBIN 28.4 pg (27.5-34.5); MEAN CORPUSCULAR HGB CONC 33.5 g/dL (33.2-36.2); MEAN CORPUSCULAR VOLUME 84.9 fL (81-97); MEAN PLATELET VOLUME 8.1 fL (7.4-10.4); MONOCYTES # (AUTO) 1.12 x10^3/uL (0.2-0.8); MONOCYTES % (AUTO) 10 % (2-9); NEUTROPHILS # (AUTO) 9.65 x10^3/uL (1.8-6.8); NEUTROPHILS % (AUTO) 82 % (42-75); PLATELET COUNT 189 x10^3/uL (130-400); RED BLOOD COUNT 5.35 x10^6/uL (4.38-5.82); RED CELL DISTRIBUTION WIDTH 14.6 % (9.4-14.8)
[2020-02-11 03:28] LABS: FREE T4 (FREE THYROXINE) 0.96 ng/dL (0.76-1.46)
[2020-02-11 03:32] LABS: ALANINE AMINOTRANSFERASE 173 U/L (12-78); ALKALINE PHOSPHATASE 57 U/L (45-117); BILIRUBIN,TOTAL 2.2 mg/dL (0.2-1.0); CHOL/HDL RATIO 1.7; CHOLESTEROL, TOTAL 294 mg/dL (140-239); CREATININE 0.89 mg/dL (0.7-1.3); HDL CHOL % 57 % (26-37); HDL CHOLESTEROL (DIRECT) 169 mg/dL (40-60); LDL CHOLESTEROL,CALCULATED 106 mg/dL (54-169); LDL/HDL RATIO 0.6 (0.5-3.0); TOTAL PROTEIN 7.5 g/dL (6.4-8.2); TRIGLYCERIDES 94 mg/dL (50-200); VLDL CHOLESTEROL 19 mg/dL (0-25)
[2020-02-11 06:42] VITALS: BP 157/97
[2020-02-11] MEDS: PANTOPRAZOLE 40 MG IV IVPush SCH ×2 (10:37→22:10)
[2020-02-11] MEDS: ONDANSETRON 2MG/ML, 2ML IVPush PRN (10:37)
[2020-02-11 12:08] VITALS: BP 156/92
[2020-02-11] MEDS: ENOXAPARIN 40 MG/0.4 ML SQ SCH (12:10)
[2020-02-11 17:03] LABS: MICROSCOPIC INDICATED
[2020-02-11 18:36] VITALS: BP 151/83
[2020-02-11] MEDS: NICOTINE 7 MG/24 HR PATCH.TD24 TD SCH (22:10)
[2020-02-11] MEDS: THIAMINE 200 MG, MVI ADULT 10 ML, FOLIC ACID 1 MG in D5%-0.9% NACL 1,000 ML IV SCH (22:11)
[2020-02-11] MEDS: LORazepam 1MG TABLET PO PRN (22:11)
[2020-02-11] MEDS: OXYcodone IR 5MG TABLET PO PRN (23:12)
[2020-02-12 01:51] VITALS: BP 144/88
[2020-02-12 05:12] LABS: BASOPHILS # (AUTO) 0.05 x10^3/uL (0-0.1); BASOPHILS % (AUTO) 1 % (0-1); EOSINOPHILS # (AUTO) 0.09 x10^3/uL (0-0.4); EOSINOPHILS % (AUTO) 1 % (1-7); LYMPHOCYTES # (AUTO) 1.77 x10^3/uL (1-3.4); LYMPHOCYTES % (AUTO) 25 % (22-44); MD NO; MEAN CORPUSCULAR HEMOGLOBIN 28.5 pg (27.5-34.5); MEAN CORPUSCULAR HGB CONC 33.2 g/dL (33.2-36.2); MEAN CORPUSCULAR VOLUME 85.9 fL (81-97); MEAN PLATELET VOLUME 8.4 fL (7.4-10.4); MONOCYTES # (AUTO) 0.83 x10^3/uL (0.2-0.8); MONOCYTES % (AUTO) 12 % (2-9); NEUTROPHILS # (AUTO) 4.34 x10^3/uL (1.8-6.8); NEUTROPHILS % (AUTO) 61 % (42-75); PLATELET COUNT 171 x10^3/uL (130-400); RED BLOOD COUNT 5.25 x10^6/uL (4.38-5.82); RED CELL DISTRIBUTION WIDTH 15.2 % (9.4-14.8)
[2020-02-12 05:19] LABS: ALBUMIN 3.7 g/dL (3.4-5.0); ANION GAP 8 mmol/L (5-15); CALCIUM 8.7 mg/dL (8.5-10.1); CHLORIDE 106 mmol/L (98-107)
[2020-02-12 05:23] LABS: ALANINE AMINOTRANSFERASE 120 U/L (12-78); ALKALINE PHOSPHATASE 54 U/L (45-117); BILIRUBIN,TOTAL 2.3 mg/dL (0.2-1.0); TOTAL PROTEIN 6.9 g/dL (6.4-8.2)
[2020-02-12] MEDS: OXYcodone IR 5MG TABLET PO PRN (06:27)
[2020-02-12 07:03] VITALS: BP 152/97
[2020-02-12] MEDS ORDERED: ALUMINUM/MAG/SIMETHICONE 30 ML UDC PO PRN (08:00)
[2020-02-12] MEDS ORDERED: POTASSIUM CHLORIDE 10% 40 MEQ/30 ML UDC PO ONE (08:00)
[2020-02-12] MEDS ORDERED: POTASSIUM CHLORIDE 10 MEQ TABLET.ER ONE (08:54)
[2020-02-12] MEDS: LORazepam 2 MG/ML, 1ML IV PRN ×2 (09:23→18:24)
[2020-02-12] MEDS: ONDANSETRON 2MG/ML, 2ML IVPush PRN (09:23)
[2020-02-12] MEDS: PANTOPRAZOLE 40 MG IV IVPush SCH ×2 (09:28→21:36)
[2020-02-12 12:16] VITALS: BP 145/90
[2020-02-12] MEDS: ENOXAPARIN 40 MG/0.4 ML SQ SCH (13:51)
[2020-02-12 19:15] VITALS: BP 139/89
[2020-02-12] MEDS: NICOTINE 7 MG/24 HR PATCH.TD24 TD SCH (21:36)
[2020-02-12] MEDS: THIAMINE 200 MG, MVI ADULT 10 ML, FOLIC ACID 1 MG in D5%-0.9% NACL 1,000 ML IV SCH (21:36)
[2020-02-12] MEDS: LORazepam 1MG TABLET PO PRN (22:38)
[2020-02-13 01:33] VITALS: BP 150/88
[2020-02-13 05:18] LABS: BASOPHILS # (AUTO) 0.02 x10^3/uL (0-0.1); BASOPHILS % (AUTO) 0 % (0-1); EOSINOPHILS # (AUTO) 0.12 x10^3/uL (0-0.4); EOSINOPHILS % (AUTO) 2 % (1-7); LYMPHOCYTES # (AUTO) 1.45 x10^3/uL (1-3.4); LYMPHOCYTES % (AUTO) 26 % (22-44); MD NO; MEAN CORPUSCULAR HEMOGLOBIN 28.5 pg (27.5-34.5); MEAN CORPUSCULAR HGB CONC 33.5 g/dL (33.2-36.2); MEAN CORPUSCULAR VOLUME 85.2 fL (81-97); MEAN PLATELET VOLUME 7.9 fL (7.4-10.4); MONOCYTES # (AUTO) 0.65 x10^3/uL (0.2-0.8); MONOCYTES % (AUTO) 12 % (2-9); NEUTROPHILS # (AUTO) 3.29 x10^3/uL (1.8-6.8); NEUTROPHILS % (AUTO) 59 % (42-75); PLATELET COUNT 179 x10^3/uL (130-400); RED BLOOD COUNT 5.16 x10^6/uL (4.38-5.82); RED CELL DISTRIBUTION WIDTH 14.8 % (9.4-14.8)
[2020-02-13 05:21] LABS: ALANINE AMINOTRANSFERASE 104 U/L (12-78); ALBUMIN 3.5 g/dL (3.4-5.0); ANION GAP 8 mmol/L (5-15); CALCIUM 8.5 mg/dL (8.5-10.1); CHLORIDE 107 mmol/L (98-107); CREATININE 0.84 mg/dL (0.7-1.3)
[2020-02-13 05:23] LABS: ALKALINE PHOSPHATASE 50 U/L (45-117); BILIRUBIN,TOTAL 1.3 mg/dL (0.2-1.0); TOTAL PROTEIN 6.6 g/dL (6.4-8.2)
[2020-02-13 07:43] VITALS: BP 150/103
[2020-02-13] MEDS ORDERED: MAG30ORA PO (08:45)
[2020-02-13] MEDS ORDERED: MAGN400T26 PO (08:45)
[2020-02-13] MEDS ORDERED: PANT20TA2 PO (08:45)
[2020-02-13] MEDS ORDERED: MULT-500 PO (08:45)
[2020-02-13] MEDS ORDERED: CLON0.1T22 PO (08:48)
[2020-02-13] MEDS ORDERED: POTASSIUM CHLORIDE 10% 40 MEQ/30 ML UDC PO ONE (09:00)
[2020-02-13] MEDS ORDERED: POTASSIUM CHLORIDE 20 MEQ TAB.ER.PRT PO ONE (09:30)
== END 2020-02-13 10:10 | disposition home or self-care (01) | DRG 897 ==
LOC: ED 22:18 → EDIP 22:28 → 4EST 23:03 → DCLOUNGE 02-13 10:04
PROVIDERS: ADMIT Internal Medicine; ATTEND Internal Medicine
DX: F10.231 Alcohol dependence with withdrawal delirium (principal); M54.9 Dorsalgia, unspecified; I10 Essential (primary) hypertension; F41.9 Anxiety disorder, unspecified; F17.210 Nicotine dependence, cigarettes, uncomplicated; E86.0 Dehydration; G43.909 Migraine, unspecified, not intractable, without status migrainosus; K29.20 Alcoholic gastritis without bleeding; Z79.899 Other long term (current) drug therapy
CPT/HCPCS: 36415; 96374; 99291; J7042; 71045; 76700; 80053; 80061; 81001; 82140; 83036; 83735; 84439; 84443; 85025; 85610; 93005; G0378; J1650; J2405; J2550; J3411; J3475; Q0162; C9113; J2060; J2270; J7030

== ENCOUNTER 2020-10-01 20:25 | Emergency (ER) | payer MEDICAID ==
[~2020-10-01] VITALS: Ht 167.6 cm; Wt 96.5 kg
[~2020-10-01 20:25] MED LIST changes: +CLON0.1T22 PO; +MAG30ORA PO; +MAGN400T26 PO; +MULT-449 PO; +MULT-500 PO; -MULT1TAB60 PO; +PANT20TA2 PO; -PANT40TA5 PO; +PANT40TA6 PO
[2020-10-01 20:27] VITALS: BP 140/113
--- NOTE | 2020-10-01 20:55 | NUR ---
Family Engagement Specialist went in to discharge patient, cheo wanted more to be done. Such as blood work. Patient noted to started getting aggitated. Family Engagement Specialist went to speak to the provider who went in to talk to them. Patient became upset, yelling and swearing stroming out of the ER. Discharge papers given to cheo.
== END 2020-10-01 21:00 | disposition home or self-care (01) ==
LOC: ED 20:44
DX: F10.129 Alcohol abuse with intoxication, unspecified (principal); I10 Essential (primary) hypertension; Y90.0 Blood alcohol level of less than 20 mg/100 ml
CPT/HCPCS: 99281

== ENCOUNTER 2020-12-17 07:12 | Inpatient (IN) | payer MEDICAID ==
[~2020-12-17] VITALS: Ht 167.6 cm; Wt 90.2 kg
[~2020-12-17 07:12] MED LIST changes: -FOLI-17 PO; +FOLI1TAB32 PO
[2020-12-17] MEDS ORDERED: ONDANSETRON ODT 4 MG ONE (07:26)
[2020-12-17] MEDS ORDERED: ONDANSETRON ODT 4 MG PO ONE (07:30)
[2020-12-17] MEDS ORDERED: SODIUM CHLORIDE FLUSH 10ML SYR IVF ONE (07:30)
[2020-12-17] MEDS ORDERED: LORazepam 2 MG/ML, 1ML IVPush ONE ×3 (07:30→09:00)
[2020-12-17] MEDS ORDERED: SODIUM CHLORIDE 0.9% 1,000ML IVBOLUS ONE (07:30)
[2020-12-17] MEDS ORDERED: THIAMINE 100 MG in SODIUM CHLORIDE 0.9% 50 ML IVPB ONE (08:00)
--- NOTE | 2020-12-17 08:00 | NUR ---
information technology technician: pt from lobby to room 3
[2020-12-17 08:36] LABS: BASOPHILS % (AUTO) 0 % (0-1); EOSINOPHILS % (AUTO) 0 % (1-7); LYMPHOCYTES % (AUTO) 5 % (22-44); MEAN CORPUSCULAR HEMOGLOBIN 28.9 pg (27.5-34.5); MEAN CORPUSCULAR HGB CONC 33.4 g/dL (33.2-36.2); MONOCYTES % (AUTO) 3 % (2-9); NEUTROPHILS % (AUTO) 91 % (42-75); PLATELET COUNT 316 x10^3/uL (130-400); RED BLOOD COUNT 5.49 x10^6/uL (4.38-5.82); RED CELL DISTRIBUTION WIDTH 15.6 % (9.4-14.8)
[2020-12-17 08:37] LABS: ALANINE AMINOTRANSFERASE 30 U/L (12-78); ALBUMIN 4.9 g/dL (3.4-5.0); ANION GAP 17 mmol/L (5-15); CALCIUM 9.1 mg/dL (8.5-10.1); CHLORIDE 103 mmol/L (98-107); CREATININE 1.06 mg/dL (0.7-1.3)
[2020-12-17 08:40] LABS: ALKALINE PHOSPHATASE 73 U/L (45-117); BILIRUBIN,TOTAL 1.3 mg/dL (0.2-1.0); MD NO; TOTAL PROTEIN 8.6 g/dL (6.4-8.2)
[2020-12-17] MEDS ORDERED: LORazepam 2 MG/ML, 1ML ONE ×2 (08:49→09:46)
--- NOTE | 2020-12-17 09:04 | NUR ---
PT STATES HE IS DETOXING FROM ETOH. LAST DRINK 28 HOURS AGO. DRINK A PINT TO A [facility] A DAY. TRIED TO GO TO [facility] BUT STATES HE WAS TESTED POSITIVE FOR THE FLU.E MEDICATED PER ORDERS. SPLITTING MACHINE OPERATOR HELPER IN PLACE.
[2020-12-17] MEDS ORDERED: POTASSIUM CHLORIDE IV ONE (09:30)
[2020-12-17] MEDS ORDERED: FOLIC ACID IV ONE (09:30)
[2020-12-17] MEDS ORDERED: MAGNESIUM SULFATE IV ONE (09:30)
[2020-12-17] MEDS ORDERED: [UNRECOGNIZED DRUG - OTHER] IV ONE (09:30)
[2020-12-17] MEDS ORDERED: ONDANSETRON 2MG/ML, 2ML ONE (09:46)
[2020-12-17] MEDS: ONDANSETRON 2MG/ML, 2ML IVPush PRN ×2 (09:50→12:44)
--- NOTE | 2020-12-17 09:59 | NUR ---
MEDICATED W ATIVAN AND ZOFRAN. IVF.
[2020-12-17] MEDS ORDERED: ONDANSETRON 2MG/ML, 2ML IVPush ONE (10:00)
[2020-12-17] MEDS ORDERED: ACETAMINOPHEN 325 MG TABLET PO PRN (10:00)
[2020-12-17] MEDS ORDERED: MELATONIN 5 MG TABLET PO PRN (10:00)
[2020-12-17] MEDS ORDERED: LORazepam 0.5MG TABLET PO PRN (10:00)
[2020-12-17] MEDS: ENOXAPARIN 40 MG/0.4 ML SQ SCH (10:00)
[2020-12-17] MEDS ORDERED: LABETALOL 5MG/ML, 20ML IVPush PRN (10:00)
[2020-12-17] MEDS ORDERED: LORazepam 1MG TABLET PO PRN ×3 (10:00)
[2020-12-17] MEDS ORDERED: DOCUSATE 100 MG CAPSULE PO PRN (10:00)
[2020-12-17] MEDS ORDERED: LORazepam 2 MG/ML, 1ML IV PRN ×5 (10:00)
[2020-12-17 10:05] LABS: FREE T4 (FREE THYROXINE) 1.08 ng/dL (0.76-1.46)
--- NOTE | 2020-12-17 10:13 | NUR ---
REPORT TO MARTELL
[2020-12-17 10:45] VITALS: BP 155/75
[2020-12-17] MEDS ORDERED: MAGNESIUM SULFATE PMX 2GM/50ML 50 ML IV ONE (12:00)
[2020-12-17] MEDS: DIAZEPAM 10 MG TABLET PO SCH ×3 (12:25→23:17)
[2020-12-17] MEDS: NICOTINE 21 MG/24 HR PATCH.TD24 TD SCH (12:26)
[2020-12-17] MEDS: LISINOPRIL 20 MG TABLET PO SCH (12:26)
[2020-12-17 14:09] VITALS: BP 167/72
[2020-12-17] MEDS: METOPROLOL TARTRATE 25 MG TAB PO SCH ×2 (15:48→23:17)
[2020-12-17 17:00] LABS: MICROSCOPIC AUTO
[2020-12-17 17:18] LABS: AMPHETAMINE SCREEN, URINE Negative (Negative); BARBITURATE SCREEN, URINE Negative (Negative); BENZODIAZEPINE SCREEN, URINE Positive (Negative); CANNABINOID SCREEN, URINE Positive (Negative); COCAINE SCREEN, URINE Negative (Negative); METHADONE SCREEN, URINE Negative (Negative); OPIATE SCREEN, URINE Negative (Negative)
[2020-12-17 19:58] VITALS: BP 161/67
[2020-12-18 02:00] VITALS: BP 157/64
[2020-12-18 05:04] LABS: BASOPHILS % (AUTO) 1 % (0-1); EOSINOPHILS % (AUTO) 1 % (1-7); LYMPHOCYTES % (AUTO) 23 % (22-44); MEAN CORPUSCULAR HGB CONC 33.4 g/dL (33.2-36.2); MEAN PLATELET VOLUME 8.2 fL (7.4-10.4); MONOCYTES % (AUTO) 10 % (2-9); NEUTROPHILS % (AUTO) 64 % (42-75); PLATELET COUNT 216 x10^3/uL (130-400); RED BLOOD COUNT 5.39 x10^6/uL (4.38-5.82); RED CELL DISTRIBUTION WIDTH 15.8 % (9.4-14.8)
[2020-12-18 05:07] LABS: INTERNATIONAL NORMALIZED RATIO 0.97 (0.93-1.1); PROTHROMBIN TIME 10.4 Seconds (9.6-11.5)
[2020-12-18 05:11] LABS: ANION GAP 8 mmol/L (5-15); CALCIUM 8.8 mg/dL (8.5-10.1); CHLORIDE 104 mmol/L (98-107); CREATININE 0.94 mg/dL (0.7-1.3)
[2020-12-18 05:17] LABS: MD NO
[2020-12-18] MEDS: METOPROLOL TARTRATE 25 MG TAB PO SCH ×3 (05:59→20:24)
[2020-12-18] MEDS: DIAZEPAM 10 MG TABLET PO SCH ×4 (05:59→20:24)
[2020-12-18] MEDS: K-PHOS NEUTRAL 250MG TAB PO SCH ×2 (07:53→20:24)
[2020-12-18] MEDS: NICOTINE 21 MG/24 HR PATCH.TD24 TD SCH (07:53)
[2020-12-18] MEDS: LISINOPRIL 20 MG TABLET PO SCH (07:53)
[2020-12-18] MEDS: PANTOPRAZOLE 40MG TABLET PO SCH (07:53)
[2020-12-18 08:30] VITALS: BP 148/98
[2020-12-18] MEDS: POTASSIUM CHLORIDE 20 MEQ, MAGNESIUM SULFATE 2 GM, THIAMINE 200 MG, FOLIC ACID 1 MG in ... IV SCH ×2 (09:30→19:10)
[2020-12-18] MEDS: LORazepam 1MG TABLET PO PRN ×4 (10:10→20:24)
[2020-12-18] MEDS: ENOXAPARIN 40 MG/0.4 ML SQ SCH (10:11)
[2020-12-18 13:40] VITALS: BP 136/96
[2020-12-18 19:39] VITALS: BP 142/84
[2020-12-19 01:33] VITALS: BP 128/84
[2020-12-19] MEDS: DIAZEPAM 10 MG TABLET PO SCH (02:29)
[2020-12-19] MEDS: POTASSIUM CHLORIDE 20 MEQ, MAGNESIUM SULFATE 2 GM, THIAMINE 200 MG, FOLIC ACID 1 MG in ... IV SCH (05:30)
[2020-12-19] MEDS: METOPROLOL TARTRATE 25 MG TAB PO SCH ×2 (05:30→13:20)
[2020-12-19 08:21] VITALS: BP 142/98
[2020-12-19] MEDS: K-PHOS NEUTRAL 250MG TAB PO SCH (08:40)
[2020-12-19] MEDS: DIAZEPAM 5 MG TABLET PO SCH ×2 (08:40→13:20)
[2020-12-19] MEDS: NICOTINE 21 MG/24 HR PATCH.TD24 TD SCH (08:41)
[2020-12-19] MEDS: LISINOPRIL 20 MG TABLET PO SCH (08:41)
[2020-12-19] MEDS: PANTOPRAZOLE 40MG TABLET PO SCH (08:41)
[2020-12-19] MEDS ORDERED: ESCITALOPRAM 10MG TABLET PO SCH (09:00)
[2020-12-19] MEDS: ENOXAPARIN 40 MG/0.4 ML SQ SCH (10:30)
[2020-12-19] MEDS ORDERED: LISI-170 PO (12:43)
[2020-12-19] MEDS ORDERED: ESCI10TA97 PO (12:43)
[2020-12-19] MEDS ORDERED: METO25TA35 PO (12:43)
[2020-12-19] MEDS ORDERED: PANT20TA2 PO (12:43)
== END 2020-12-19 14:58 | disposition home or self-care (01) | DRG 433 ==
LOC: ED 09:05 → EDIP 09:22 → 4WST 10:27 → DCLOUNGE 12-19 14:52
PROVIDERS: ADMIT Internal Medicine; ATTEND Hospitalist
DX: K70.9 Alcoholic liver disease, unspecified (principal); E87.2 Acidosis; F10.231 Alcohol dependence with withdrawal delirium; D72.829 Elevated white blood cell count, unspecified; E83.39 Other disorders of phosphorus metabolism; E83.42 Hypomagnesemia; F12.90 Cannabis use, unspecified, uncomplicated; F32.9 Major depressive disorder, single episode, unspecified; I10 Essential (primary) hypertension; Z72.0 Tobacco use; Z87.11 Personal history of peptic ulcer disease
CPT/HCPCS: 36415; 96365; 96368; 96375; 96376; 99285; J7042; 71045; 80048; 80053; 80307; 81001; 83690; 83735; 84100; 84439; 84443; 85025; 85610; 93005; G0378; J1650; J2405; J3411; J3475; J3480; J7070; Q0162; J2060; J7030

== ENCOUNTER 2021-04-03 16:06 | Emergency (ER) | payer MEDICAID ==
[~2021-04-03] VITALS: Ht 172.7 cm; Wt 90.0 kg
[~2021-04-03 16:06] MED LIST changes: +ESCI10TA97 PO; +LISI-170 PO; +METO25TA35 PO
[2021-04-03] MEDS ORDERED: SODIUM CHLORIDE 0.9% 1,000ML IVBOLUS ONE (18:00)
[2021-04-03] MEDS ORDERED: SODIUM CHLORIDE FLUSH 10ML SYR IVF ONE (18:00)
[2021-04-03] MEDS ORDERED: DEXAMETHASONE 4 MG/ML, 1ML IVPush ONE (18:00)
[2021-04-03 18:07] LABS: BASOPHILS % (AUTO) 1 % (0-1); EOSINOPHILS % (AUTO) 0 % (1-7); LYMPHOCYTES % (AUTO) 24 % (22-44); MEAN CORPUSCULAR HEMOGLOBIN 29.5 pg (27.5-34.5); MEAN CORPUSCULAR HGB CONC 33.5 g/dL (33.2-36.2); MEAN PLATELET VOLUME 8.3 fL (7.4-10.4); MONOCYTES % (AUTO) 10 % (2-9); NEUTROPHILS % (AUTO) 65 % (42-75); PLATELET COUNT 208 x10^3/uL (130-400); RED CELL DISTRIBUTION WIDTH 14.8 % (9.4-14.8)
[2021-04-03 18:09] LABS: ALBUMIN 3.3 g/dL (3.4-5.0); ANION GAP 9 mmol/L (5-15); CALCIUM 10.1 mg/dL (8.5-10.1); CHLORIDE 104 mmol/L (98-107)
[2021-04-03] MEDS ORDERED: DEXAMETHASONE 4 MG/ML, 1ML ONE (18:09)
[2021-04-03 18:13] LABS: ALANINE AMINOTRANSFERASE 109 U/L (12-78); ALKALINE PHOSPHATASE 64 U/L (45-117); BILIRUBIN,TOTAL 0.5 mg/dL (0.2-1.0); CREATININE 0.79 mg/dL (0.7-1.3); TOTAL PROTEIN 6.8 g/dL (6.4-8.2)
--- NOTE | 2021-04-03 18:55 | NUR ---
Report from Stephania CODY
[2021-04-03 19:11] VITALS: BP 132/84
[2021-04-03] MEDS ORDERED: ONDANSETRON 2MG/ML, 2ML IVPush ONE (19:30)
[2021-04-03] MEDS ORDERED: FAMOTIDINE 20 MG/2 ML IVPush ONE (19:30)
[2021-04-03] MEDS ORDERED: FAMOTIDINE 20 MG/2 ML ONE (19:35)
[2021-04-03] MEDS ORDERED: ONDANSETRON 2MG/ML, 2ML ONE (19:35)
== END 2021-04-03 20:36 | disposition home or self-care (01) ==
LOC: ED 18:57
DX: U07.1 COVID-19 (principal); J06.9 Acute upper respiratory infection, unspecified; K52.9 Noninfective gastroenteritis and colitis, unspecified; E86.0 Dehydration; R06.02 Shortness of breath; I10 Essential (primary) hypertension; F17.200 Nicotine dependence, unspecified, uncomplicated
CPT/HCPCS: 36415; 71045; 80053; 85025; 96361; 96374; 96375; 99284; J1100; J2405; J7030